=== PATIENT | female | born 1995 | race African-American/Black ===

== ENCOUNTER 2024-08-12 12:46 | Inpatient (IN) | payer OTHER ==
[2024-08-12 13:14] VITALS: BMI 31.8
[2024-08-12] MEDS ORDERED: ACETAMINOPHEN INJECTION 100 ML ONE ×3 (16:16→21:03)
[2024-08-12 16:24] LABS: BASO % 0.2 % (0-2.0); EOS % 0.3 % (0-4.5); HEMATOCRIT 31.7 % (32.4-45.2); HEMOGLOBIN 10.5 GM/dL (10.7-15.3); LYMPH % 15.7 % (8-40); MCH 29.6 pg (25.7-33.7); MCHC 33.2 g/dl (32.0-36.0); MEAN CELL VOLUME 89.2 fl (80-96); MEAN PLT VOLUME 9.1 fl (7.5-11.1); NEUT % 77.8 % (42.8-82.8); PLATELET COUNT 271 10^3/uL (134-434); RBC 3.55 M/mm3 (3.60-5.2); RDW 13.8 % (11.6-15.6); WHITE BLOOD COUNT 9.7 K/mm3 (4.0-10.0)
[2024-08-12] MEDS: ACETAMINOPHEN 1000 MG/100 ML BAG IVPB ONE (16:25)
[2024-08-12 16:37] LABS: EPI CELLS 6 /uL (0-25.1); HYALINE CASTS 0 /uL (0-3.1); PH,URINE 7.5 (5.0-8.0); URINE APPEARANCE CLEAR; URINE BACTERIA 164 /uL (0-1359); URINE BILIRUBIN NEGATIVE (NEGATIVE); URINE COLOR YELLOW; URINE GLUCOSE (UA) NEGATIVE (NEGATIVE); URINE KETONE NEGATIVE (NEGATIVE); URINE LEUK ESTERASE NEGATIVE (NEGATIVE); URINE NITRITE NEGATIVE (NEGATIVE); URINE PROTEIN NEGATIVE (NEGATIVE); URINE RBC 359 /uL (0-23.9); URINE UROBILINOGEN 0.2 mg/dL (0.2-1.0); URINE WBC 3 /uL (0-25.8)
[2024-08-12 16:53] LABS: POTASSIUM 3.6 mmol/L (3.5-5.1)
[2024-08-12 16:54] LABS: CALCIUM 9.1 mg/dL (8.5-10.1)
[2024-08-12 16:55] LABS: BLOOD UREA NITROGEN 6.2 mg/dL (7-18)
[2024-08-12 16:58] LABS: CREATININE 0.7 mg/dL (0.55-1.3)
[2024-08-12] MEDS ORDERED: ONDANSETRON 4 MG/2 ML VIAL IVPUSH PRN (20:24)
[2024-08-12] MEDS ORDERED: PROMETHAZINE HCL 25 MG/1 ML VIAL IVPB PRN (20:24)
[2024-08-12] MEDS ORDERED: PROPOFOL 20 ML ONE (20:38)
[2024-08-12] MEDS ORDERED: ROCURONIUM BROMIDE 50 MG/5 ML SYRINGE ONE (20:38)
[2024-08-12] MEDS ORDERED: MIDAZOLAM HCL 2 MG/2 ML SINGLE DOSE VIAL ONE (20:38)
[2024-08-12] MEDS ORDERED: KETOROLAC TROMETHAMINE 30 MG/1 ML VIAL ONE (22:16)
[2024-08-12] MEDS ORDERED: SUGAMMADEX SODIUM 200 MG/2 ML VIAL ONE (22:17)
[2024-08-12] MEDS: BUPIVACAINE HCL/PF 0.5% (5MG/ML) 10 ML VIAL IJ ONE (22:24)
[2024-08-12] MEDS: LACTATED RINGERS SOLUTION 1,000 ML IV SCH ×2 (22:44→23:23)
[2024-08-13] MEDS: ACETAMINOPHEN 325 MG TABLET (FP) PO SCH (03:40)
[2024-08-13] MEDS: MELATONIN 5 MG TABLETS PO ONE (05:00)
[2024-08-13] MEDS: oxyCODONE HCL 5 MG TABLET PO PRN (06:38)
[2024-08-13 09:36] VITALS: BP 112/68; PULSE 81; RESP 18; TEMP 98.3
== END 2024-08-13 11:45 | disposition home or self-care (01) | DRG 819 ==
LOC: JER 12:46 → JERBED 20:34 → J3W 08-13 00:02
PROVIDERS: ADMIT Obstetrics & Gynecology; ATTEND Obstetrics & Gynecology
PROC: 0UT64ZZ Resection of Left Fallopian Tube, Percutaneous Endoscopic Approach (ICD-10-PCS; 2024-08-12)
PROC: 10T24ZZ Resection of Products of Conception, Ectopic, Percutaneous Endoscopic Approach (ICD-10-PCS; principal; 2024-08-12 20:45)
DX: O00.102 Left tubal pregnancy without intrauterine pregnancy (principal)
CPT/HCPCS: 36415; 76830-TC; 80048; 81003; 84702; 84703; 85025; 86900; 88305-TC; 94760; 99285-25; J0131